=== PATIENT | female | born 1980 | race Caucasian/White ===

== ENCOUNTER 2016-07-30 19:35 | Emergency (ER) | payer MEDICAID, OTHER ==
[~2016-07-30] VITALS: Ht 175.3 cm; Wt 131.0 kg
[2016-07-30 19:41] VITALS: Ht 175.3 cm; Wt 131.0 kg
--- NOTE | 2016-07-30 19:59 | ERD ---
ER Documentation Chief Complaint Date/Time DATE: 07/30/16 TIME: 19:58 Chief Complaint general abd pain x 2 day. +nausea -v/d HPI Patient is a 36-year-old female who presents with gradual onset, constant, moderate left upper quadrant and bilateral lower quadrant abdominal pain for 6 days. She states that her period ended 2 days ago. She had the symptoms during her period, and she thought that her menstrual cramps, but they persist after her period stopped. The patient reports having the same left upper quadrant pain for years after having her tubal ligation. She states that it is worse now than usual. She denies fever, vomiting, diarrhea, constipation, back pain, dysuria, hematuria. She denies vaginal discharge. She reports nausea. ROS All systems reviewed and are negative except as per history of present illness. Medications Home Meds Active Scripts Dicyclomine Hcl* (Bentyl*) 10 Mg Capsule, 10 MG PO QID Y for PAIN, #20 CAP Prov:JOAQUINA LIZARRAGA MD 07/30/16 Famotidine* (Pepcid*) 20 Mg Tablet, 20 MG PO DAILY, #30 TAB Prov:JOAQUINA LIZARRAGA MD 07/30/16 PMhx/Soc Past medical history: None Past surgical history: Tubal ligation Social history: Denies tobacco or alcohol FmHx Family History: No coronary disease, No diabetes Physical Exam Vitals Vital Signs Date Time Temp Pulse Resp B/P Pulse Ox O2 Delivery O2 Flow Rate FiO2 07/30/16 21:44 99.1 78 20 119/80 100 Room Air 07/30/16 19:41 98.2 99 18 134/85 99 Physical Exam Const: Alert, no acute distress Head: Atraumatic Eyes: Normal Conjunctiva, no pallor, no icterus ENT: Normal External Ears, Nose and Mouth. Mucous membranes moist Neck: Full range of motion..~ No meningismus. Resp: Clear to auscultation bilaterally Cardio: Regular rate and rhythm, no murmurs Abd: Soft, non tender, non distended. No guarding, no rebound Skin: No petechiae or rashes Back: No midline or flank tenderness Ext: No cyanosis, or edema Neur: Awake and alert Psych: Normal Mood and Affect Results 24 hrs Laboratory Tests Test 07/30/16 19:19 Urine Color LT. YELLOW Urine Clarity CLEAR Urine pH 6.0 Urine Specific Lim[place] <=1.005 Urine Ketones NEGATIVE Urine Nitrite NEGATIVE Urine Bilirubin NEGATIVE Urine Urobilinogen 0.2 E.U./dL Urine Leukocyte Esterase 1+ Urine Microscopic RBC 2-5/HPF Urine Microscopic WBC 10-25/HPF Urine Epithelial Cells FEW Urine Bacteria FEW Urine Hemoglobin 1+ Urine Glucose NEGATIVE% Urine Total Protein NEGATIVE Current Medications Medications (Trade) Dose Ordered Sig/Gen Route PRN Reason Start Time Stop Time Status Last Admin Dose Admin Dicyclomine HCl (Bentyl) 10 mg ONCE ONCE PO 07/30/16 20:00 07/30/16 20:01 DC 07/30/16 20:05 Famotidine (Pepcid) 20 mg ONCE ONCE PO 07/30/16 20:00 07/30/16 20:01 DC 07/30/16 20:05 Procedures/MDM MDM: Patient is a 36-year-old female who presents with 6 days of abdominal pain. The pain is primarily in the left upper quadrant as well as bilateral lower quadrants. She has a benign exam, no fever, no history of vomiting. The patient denies dysuria or vaginal discharge. Urinalysis shows some white blood cells, but few bacteria. The patient was treated in the ER with Pepcid and Bentyl, and states that her symptoms have completely resolved. Given that the patient is afebrile and has no dysuria, I will defer treatment of UTI based upon results of urine culture. Advised patient to return to ER for fever, vomiting, recurrence of pain. I will prescribe her Pepcid and Bentyl in case of recurrence of symptoms. Departure Diagnosis: Primary Impression: Abdominal pain Abdominal location: left upper quadrant Qualified Code: R10.12 - Left upper quadrant pain Condition: JOAQUINA Norton MD Jul 30, 2016 19:59
[2016-07-30] MEDS ORDERED: FAMOTIDINE 20 MG TAB PO ONE (20:00)
[2016-07-30] MEDS ORDERED: DICYCLOMINE 10 MG CAP PO ONE (20:00)
[2016-07-30] MEDS ORDERED: DICY10CA60 PO (21:32)
[2016-07-30] MEDS ORDERED: FAMO-18 PO (21:32)
[2016-07-30 21:35] LABS: ADD UMIC YES; URINE BILIRUBIN (Dip) NEGATIVE (NEGATIVE); URINE BLOOD (Dip) 1+ (NEGATIVE); URINE COLOR LT. YELLOW (YELLOW); URINE GLUCOSE (Dip) NEGATIVE (NEGATIVE); URINE KETONES (Dip) NEGATIVE (NEGATIVE); URINE LEUKOCYTE ESTERASE (Dip) 1+ (NEGATIVE); URINE NITRITE (Dip) NEGATIVE (NEGATIVE); URINE TOTAL PROTEIN (Dip) NEGATIVE (NEGATIVE); URINE UROBILINOGEN (Dip) 0.2 E.U./dL (0.1-1.0)
[2016-07-30 21:44] VITALS: BP 119/80; PULSE 78; RESP 20; TEMP 99.1
[2016-07-30 21:49] LABS: BACTERIA,URINE FEW
== END 2016-07-30 21:45 | disposition home or self-care (01) ==
LOC: E/R 19:35
DX: R10.12 Left upper quadrant pain (principal)
CPT/HCPCS: 81001; 87086; Z7502; Z7610; 99283

== ENCOUNTER 2016-09-13 13:30 | Emergency (ER) | payer MEDICAID ==
[~2016-09-13] VITALS: Ht 180.3 cm; Wt 130.0 kg
[~2016-09-13 13:30] MED LIST: DICY10CA60 PO; FAMO-96 PO
[2016-09-13 13:33] VITALS: Ht 180.3 cm; Wt 130.0 kg
[2016-09-13] MEDS ORDERED: ONDANSETRON (ODT) 4 MG TAB ODT STA (14:46)
[2016-09-13] MEDS ORDERED: ACETAMINOPHEN 325 MG TAB PO ONE (15:00)
[2016-09-13 15:58] LABS: BASOPHILS % 0.2 % (0.0-2.0); EOSINOPHILS # 0.2 10^3/ul (0.0-0.5); EOSINOPHILS % 1.9 % (0.0-7.0); HEMATOCRIT 41.1 % (37.0-47.0); HEMOGLOBIN 13.9 g/dl (12.0-16.0); LYMPHOCYTES # 1.5 10^3/ul (0.8-2.9); LYMPHOCYTES % 17.5 % (15.0-51.0); MEAN CORPUSCULAR HEMOGLOBIN 30.1 pg (29.0-33.0); MEAN CORPUSCULAR HGB CONC 33.8 g/dl (32.0-37.0); MONOCYTE # 0.6 10^3/ul (0.3-0.9); MONOCYTES % 6.7 % (0.0-11.0); NEUTROPHIL # 6.3 10^3/ul (1.6-7.5); NEUTROPHILS % 73.3 % (39.0-77.0); PLATELET COUNT 274 10^3/UL (140-415); RED BLOOD COUNT 4.62 10^6/ul (4.20-5.40); RED CELL DISTRIBUTION WIDTH 12.5 % (11.5-14.5); WHITE BLOOD COUNT 8.5 10^3/ul (4.8-10.8)
[2016-09-13 16:14] LABS: ALBUMIN 4.9 g/dl (3.3-4.9); ALBUMIN/GLOBULIN RATIO 1.58; BILIRUBIN,INDIRECT 0.3 mg/dl (0-1.1); BILIRUBIN,TOTAL 0.3 mg/dl (0.2-1.3); CALCIUM 10.2 mg/dl (8.4-10.2); CREATININE 0.81 mg/dl (0.44-1.00); POTASSIUM 4.6 mmol/L (3.5-5.1)
[2016-09-13] MEDS ORDERED: ONDA4TAB14 PO (16:52)
[2016-09-13] MEDS ORDERED: ACET325T33 PO (16:52)
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
[2016-09-13 17:04] VITALS: BP 165/91; PULSE 79; RESP 16; TEMP 98.4
== END 2016-09-13 17:05 | disposition home or self-care (01) ==
LOC: FTE 13:30
DX: R51 Headache (principal); R11.0 Nausea
CPT/HCPCS: 36415; 80053; 85025; Z7502; Z7610; 99283

== ENCOUNTER 2018-01-27 22:41 | Emergency (ER) | END 2018-01-28 01:13 | disposition home or self-care (01) ==

== ENCOUNTER 2018-02-15 20:31 | Emergency (ER) | payer MEDICAID ==
[~2018-02-15] VITALS: Wt 135.0 kg
[~2018-02-15 20:31] MED LIST changes: +ACET325T33 PO; +DICY10CA40 PO; -DICY10CA60 PO; +FIORICET PO; +ONDA4TAB14 PO
[2018-02-15 20:34] VITALS: BP 148/94; PULSE 91; RESP 19
--- NOTE | 2018-02-15 21:01 | ERD ---
ER Documentation Chief Complaint Chief Complaint bib self, cc: headache x 3 days HPI This is a 37-year-old female who presents emergency department with complaints of congestion, right lower eyelid inflammation. Also complains of cough and fever. Also stated she felt like she had a fever at home but never took her temperature. Denies use of contact lenses, use of glasses, eye injuries. Denies foreign body sensation to eyes. LMP: 02/15/2018. . Denies headache, head injury, loss of consciousness, dizziness, neck pain, neck stiffness, throat pain, difficulty swallowing, difficulty breathing lying flat, shoulder pain, chest pain, back pain, abdominal pain, nausea, vomiting, const ipation, diarrhea, urinary symptoms, or possibility being , loss of bowel and bladder control, trauma, injury, falls, difficulty walking due to pain, numbness or tingling sensation, calf pain, recent travel, recent major surgery in the last 3 weeks, calf pain, recent long travel, recent exposure to any illness, recent antibiotic use in the last 3 months, chills, seizures. Past medical history: Surgical history: Tubal ligation. Social: Denies smoking, use of alcoholic beverages, use of illegal drugs. ROS All systems reviewed and are negative except as per history of present illness. Medications Home Meds Active Scripts Acetamin/Butalbital/Caffeine* (Fioricet*) [id number] Tab, 1 TAB PO Q6H PRN for PAIN, #30 TAB Prov:EITAN COTO 02/15/18 Guaifenesin-Dextromethorphan* (Robafen* DM) 100MG/10MG/5ML Liquid, 7.5 ML PO Q6H PRN for COUGH, #120 ML Prov:SHBANAMILAEITAN MACEDO 02/15/18 Loratadine (Loratadine) 10 Mg Capsule, 10 MG PO DAILY, #30 CAP Prov:SHABNAMILAEITAN MACEDO 02/15/18 Erythromycin Base (Erythromycin) 1 Gm Oint...g., 1 APPLIC BOTH EYES QID for 7 Days Prov:PASILAEITAN MACEDO 02/15/18 Acetaminophen* (Tylophen*) 500 Mg Capsule, 1 CAP PO Q6H PRN for PAIN AND OR ELEVATED TEMP, #20 CAP Prov:PASEITAN GUERRA 02/15/18 Ibuprofen* (Motrin*) 800 Mg Tab, 800 MG PO Q6H PRN for PAIN AND OR ELEVATED TEMP, #30 TAB Prov:EITAN COTO 02/15/18 Amoxicillin/Potassium Clav (Amox-Clav 875-125 mg Tablet) 875-125 mg Tab, 1 TAB PO BID for 10 Days, #20 TAB Prov:EITAN COTO 02/15/18 Acetamin/Butalbital/Caffeine* (Fioricet*) [id number] Tab, 1 TAB PO Q6H PRN for PAIN, #30 TAB Prov:LUCERO ALEXANDER PA-C 01/28/18 Acetaminophen* (Tylenol*) 325 Mg Tablet, 2 TAB PO Q8 PRN for PAIN AND OR ELEVATED TEMP, #20 TAB Prov:VANNA STANTON PA-C 09/13/16 Ondansetron (Ondansetron Odt) 4 Mg Tab.rapdis, 4 MG PO Q6H PRN for NAUSEA AND/OR VOMITING, #10 TAB Prov:VANNA STANTON PA-C 09/13/16 Dicyclomine HCl (Dicyclomine HCl) 10 Mg Capsule, 10 MG PO QID PRN for PAIN, #20 CAP Prov:JOAQUINA LIZARRAGA MD 07/30/16 Famotidine* (Pepcid*) 20 Mg Tablet, 20 MG PO DAILY, #30 TAB Prov:JOAQUINA LIZARRAGA MD 07/30/16 Allergies Allergies: Coded Allergies: No Known Allergy (Unverified , 02/15/18) PMhx/Soc Hx Alcohol Use: No Hx Substance Use: No Hx Tobacco Use: No Physical Exam Vitals Vital Signs Date Temp Pulse Resp B/P (MAP) Pulse Ox O2 O2 Flow FiO2 Time Delivery Rate 02/15/18 98.2 91 19 148/94 100 20:34 (112) Physical Exam Const: No acute distress Head: Atraumatic Eyes: Right eye: Has conjunctival injection. Right lower eyelid has inflammation. Good eye movement. No visual field loss. Left eye: Mild conjunctival injection. No eyelid inflammation. Good eye movement. No visual field loss. ENT: Normal External Ears, Nose and Mouth. Bilateral ears: TMs are not erythematous. No bleeding. No discharge. No mastoid tenderness. No hearing loss. Nose: There is frontal and maxillary sinus tenderness to palpation. Throat: Uvula is in midline and nondisplaced. Tonsils are +1 bilaterally with no redness and no exudates. Tolerating secretions. Patent airway. Speech full and clear sentences. Neck: Full range of motion. No meningismus. No nuchal rigidity. No signs of meningeal irritation. Resp: Clear to auscultation bilaterally. No accessory muscle use in breathing. Cardio: Regular rate and rhythm, no murmurs Abd: Soft, non tender, non distended. Normal bowel sounds Skin: No petechiae or rashes Back: No midline or flank tenderness Ext: No cyanosis, or edema Neur: Awake and alert. No neurological deficits. Psych: Normal Mood and Affect Results 24 hrs Current Medications Medications Dose Sig/Gen Start Time Status Last (Trade) Ordered Route PRN Stop Time Admin Dose Reason Admin 1 tab ONCE ONCE 02/15/18 DC 02/15/18 Acetaminophen PO 21:30 21: / 02/15/18 Hydrocodone 21:30 Bitart (Scotia (10)) Procedures/MDM Diagnostic tests: Clinical exam. Treatment: Scotia p.o. Re-evaluation: Denies pain. Differential diagnosis I have low suspicion for acute closure angle glaucoma, globe rupture, retained foreign body to eyes, periorbital cellulitis, orbital cellulitis, mastoiditis, peritonsillar abscess, meningitis, sepsis. Final diagnosis: Blepharitis. Conjunctivitis. Sinusitis. Prescription: Erythromycin ophthalmic. Augmentin. Motrin. Claritin. Nasonex. Also instructed to do warm compresses to her right lower eyelid. Follow-up with PCP in the next 24-48 hours. Come back here in the emergency department for any new symptoms or any worsening symptoms. All questions and concerns were answered. Patient and family members verbalized understanding and agreed with plan of care. Hemodynamically stable on discharge. Departure Diagnosis: Primary Impression: Headache Additional Impressions: Acute bacterial sinusitis Blepharitis Conjunctivitis Allergic rhinitis Condition: Stable Additional Instructions: Follow-up with PCP in the next 24-48 hours. Come back here in the emergency department for any new symptoms or any worsening symptoms. EITAN COTO Feb 15, 2018 21:01
[2018-02-15] MEDS ORDERED: ACET500C5 PO (21:13)
[2018-02-15] MEDS ORDERED: AMOX1TAB10 PO (21:13)
[2018-02-15] MEDS ORDERED: IBUP800T48 PO (21:13)
[2018-02-15] MEDS ORDERED: ERYT1OIN6 BOTH EYES (21:14)
[2018-02-15] MEDS ORDERED: LORA10CA9 PO (21:14)
[2018-02-15] MEDS ORDERED: GUAI-227 PO (21:15)
[2018-02-15] MEDS ORDERED: FIORICET PO (21:16)
[2018-02-15] MEDS ORDERED: HYDROCODONE/APAP (10/325) TAB PO ONE (21:30)
== END 2018-02-15 21:29 | disposition home or self-care (01) ==
LOC: FTE 20:31
DX: J01.90 Acute sinusitis, unspecified (principal); H01.009 Unspecified blepharitis unspecified eye, unspecified eyelid; H10.9 Unspecified conjunctivitis; J30.9 Allergic rhinitis, unspecified
CPT/HCPCS: Z7502; Z7610; 99283

== ENCOUNTER 2018-05-28 20:51 | Emergency (ER) | payer MEDICAID ==
[~2018-05-28] VITALS: Ht 170.2 cm; Wt 135.6 kg
[~2018-05-28 20:51] MED LIST changes: +ACET500C5 PO; +AMOX1TAB10 PO; +ERYT1OIN6 BOTH EYES; +GUAI-227 PO; +IBUP800T48 PO; +LORA10CA9 PO
[2018-05-28 20:56] VITALS: Ht 170.2 cm; Wt 135.6 kg
[2018-05-28] MEDS ORDERED: KETOROLAC 60 MG INJ IM STA (23:26)
[2018-05-28] MEDS ORDERED: HYDROCODONE/APAP (5/325) TAB PO ONE (23:30)
--- NOTE | 2018-05-28 23:43 | ERD ---
ER Documentation Chief Complaint Chief Complaint LEFT FOOT PAIN AND LEFT SIDE PAIN, S/P FALL [id number] AGO HPI 37-year-old female presents with complaint of left foot pain worse in the morni ng as well as left lower back pain. States that she fell 2 months ago possibly injuring herself. Also admits to some dysuria and urgency. Denies any numbness, tingling, weakness, vomiting, abdominal pain, diarrhea, fevers. Not taking any treatments. Denies allergies. Denies medical problems. ROS All systems reviewed and are negative except as per history of present illness. Medications Home Meds Active Scripts Hydrocodone/Acetaminophen (Bishop 5-325 Tablet) 1 Each Tablet, 1 TAB PO Q6H PRN for PAIN, #7 TAB Prov:LISA GALLAGHER 05/29/18 Ibuprofen* (Motrin*) 600 Mg Tab, 600 MG PO Q6 for pain, #30 TAB Prov:LISA GALLAGHER 05/29/18 Acetamin/Butalbital/Caffeine* (Fioricet*) [id number] Tab, 1 TAB PO Q6H PRN for PAIN, #30 TAB Prov:EITAN COTO 02/15/18 Guaifenesin-Dextromethorphan* (Robafen* DM) 100MG/10MG/5ML Liquid, 7.5 ML PO Q6H PRN for COUGH, #120 ML Prov:EITAN COTO 02/15/18 Loratadine (Loratadine) 10 Mg Capsule, 10 MG PO DAILY, #30 CAP Prov:EITAN COTO 02/15/18 Erythromycin Base (Erythromycin) 1 Gm Oint...g., 1 APPLIC BOTH EYES QID for 7 Days Prov:EITAN COTO 02/15/18 Acetaminophen* (Tylophen*) 500 Mg Capsule, 1 CAP PO Q6H PRN for PAIN AND OR ELEVATED TEMP, #20 CAP Prov:EITAN COTO 02/15/18 Ibuprofen* (Motrin*) 800 Mg Tab, 800 MG PO Q6H PRN for PAIN AND OR ELEVATED TEMP, #30 TAB Prov:EITAN COTO 02/15/18 Amoxicillin/Potassium Clav (Amox-Clav 875-125 mg Tablet) 875-125 mg Tab, 1 TAB PO BID for 10 Days, #20 TAB Prov:EITAN COTO 02/15/18 Acetamin/Butalbital/Caffeine* (Fioricet*) [id number] Tab, 1 TAB PO Q6H PRN for PAIN, #30 TAB Prov:LUCERO ALEXANDER PA-C 01/28/18 Acetaminophen* (Tylenol*) 325 Mg Tablet, 2 TAB PO Q8 PRN for PAIN AND OR ELEVATED TEMP, #20 TAB Prov:VANNA STANTON PA-C 09/13/16 Ondansetron (Ondansetron Odt) 4 Mg Tab.rapdis, 4 MG PO Q6H PRN for NAUSEA AND/OR VOMITING, #10 TAB Prov:VANNA STANTON PA-C 09/13/16 Dicyclomine HCl (Dicyclomine HCl) 10 Mg Capsule, 10 MG PO QID PRN for PAIN, #20 CAP Prov:JOAQUINA LIZARRAGA MD 07/30/16 Famotidine* (Pepcid*) 20 Mg Tablet, 20 MG PO DAILY, #30 TAB Prov:JOAQUINA LIZARRAGA MD 07/30/16 Allergies Allergies: Coded Allergies: No Known Allergy (Unverified , 02/15/18) PMhx/Soc Medical and Surgical Hx: pt denies Medical Hx, pt denies Surgical Hx Hx Alcohol Use: No Hx Substance Use: No Hx Tobacco Use: No Smoking Status: Never smoker FmHx Family History: No diabetes, No coronary disease, No other Physical Exam Vitals Vital Signs Date Temp Pulse Resp B/P (MAP) Pulse Ox O2 O2 Flow FiO2 Time Delivery Rate 05/28/18 98.3 95 19 142/91 99 20:56 (108) Physical Exam Const: No acute distress Head: Atraumatic Eyes: Normal Conjunctiva ENT: Normal External Ears, Nose and Mouth. Neck: Full range of motion. No meningismus. Resp: Clear to auscultation bilaterally Cardio: Regular rate and rhythm, no murmurs Abd: Soft, non tender, non distended. Normal bowel sounds Skin: No petechiae or rashes Back: No midline or flank tenderness Ext: No cyanosis, or edema. 5/5 strength in lower extremities bilaterally. Distal pulses and sensation is intact. Tenderness to palpation posterior plantar aspect of left foot. There is no bony deformity, erythema, ecchymosis, or edema on the left foot. Full range of motion in all joints of lower extremities bilaterally. Neur: Awake and alert Psych: Normal Mood and Affect Results 24 hrs Laboratory Tests Test 05/28/18 23:44 05/28/18 23:56 POC Beta HCG, Qualitative NEGATIVE Bedside Urine pH (LAB) 6.0 Bedside Urine Protein (LAB) Negative Bedside Urine Glucose (UA) Negative Bedside Urine Ketones (LAB) Negative Bedside Urine Blood Trace-lysed Bedside Urine Nitrite (LAB) Negative Bedside Urine Leukocyte Esterase (L Negative Current Medications Medications Dose Sig/Gen Start Time Status Last (Trade) Ordered Route PRN Stop Time Admin Dose Reason Admin Ketorolac 60 mg ONCE STAT 05/28/18 DC 05/28/18 Tromethamine IM 23:26 05/28/18 23:57 (Toradol) 23:28 1 tab ONCE ONCE 05/28/18 DC 05/28/18 Acetaminophen PO 23:30 05/28/18 23:42 / 23:31 Hydrocodone Bitart (Bishop (5/325)) Procedures/MDM Patient's presentation is consistent with plantar fasciitis. Patient was given pain medication in the ER but told that this seems to be handled by podiatry as an outpatient basis. Patient is ambulatory and there is no suspicion of fracture at this time or need for imaging. I have low suspicion for neurovascular compromise, compartment syndrome, fracture, osteomyelitis, septic joint, or other emergent condition. Patient discharged with short course of Bishop for breakthrough pain as well as ibuprofen. Patient discharged with strict ER precautions. Patient advised to follow up with PMD. All questions answered at discharge. The patient has been prescribed Bishop during this encounter. The patient has been warned about the use of narcotics. The patient should not drive or operate heavy machinery while taking this medication. The patient was also warned about the addictive properties of narcotic medications. Narcan prescription was NOT provided given the following criteria 1. No more than 5 tablets of Bishop 10 mg or 10 tablets of Bishop 5 mg were prescribed. 2. Concomitant opiate and benzodiazepine prescriptions were not provided. 3. There is no obvious evidence of prior history of opiate abuse or overdose. Narcan prescription WAS provided given one of the following criteria were met. 1. More than 5 tablets of Bishop 10 mg or 10 tablets of Bishop 5 mg were prescribed. 2. Concomitant opiate and benzodiazepine prescriptions were provided. 3. There is evidence of prior history of opiate abuse or overdose. Departure Diagnosis: Primary Impression: Plantar fasciitis of left foot Condition: Stable LISA GALLAGHER May 28, 2018 23:43
[2018-05-29] MEDS ORDERED: IBUP-1542 PO (00:02)
[2018-05-29] MEDS ORDERED: HYDR-4011 PO (00:02)
[2018-05-29 00:27] VITALS: BP 129/75; PULSE 76; RESP 20
== END 2018-05-29 00:28 | disposition home or self-care (01) ==
LOC: FTE 20:51
DX: M72.2 Plantar fascial fibromatosis (principal)
CPT/HCPCS: 81003; 81025; 96372; J1885; Z7502; Z7610

== ENCOUNTER 2018-10-08 22:40 | Emergency (ER) | payer MEDICAID ==
[~2018-10-08] VITALS: Ht 175.3 cm; Wt 129.8 kg
[~2018-10-08 22:40] MED LIST changes: +CYCL10TA7 PO; +HYDR-4011 PO; +IBUP-1542 PO; +NAPR-688 PO; +NAPR-985 PO
[2018-10-08 22:42] VITALS: Ht 175.3 cm; Wt 129.8 kg
[2018-10-09] MEDS ORDERED: KETOROLAC 30 MG INJ IM STA (00:15)
[2018-10-09] MEDS ORDERED: DEXAMETHASONE 10 MG/ML 1 ML INJ IM ONE (00:30)
[2018-10-09 01:45] VITALS: BP 121/76; PULSE 76; RESP 18
== END 2018-10-09 01:45 | disposition home or self-care (01) ==
LOC: FTE 22:40
DX: S90.32XA Contusion of left foot, initial encounter (principal); M54.42 Lumbago with sciatica, left side; X50.1XXA Overexertion from prolonged static or awkward postures, initial encounter; Y92.002 Bathroom of unspecified non-institutional (private) residence as the place of occurrence of the external cause
CPT/HCPCS: 73630; 81025; 96372; J1100; J1885; Z7502

== ENCOUNTER 2018-10-25 08:32 | Inpatient (IN) | payer MEDICAID ==
[~2018-10-25] VITALS: Ht 177.8 cm; Wt 133.0 kg
[~2018-10-25 08:32] MED LIST changes: +BACL10TA PO; +FLUT9.9S NASAL; -GUAI-227 PO; +GUAI-752 PO; +NITR-58 PO
[2018-10-25] MEDS ORDERED: SOD CHLORIDE 0.9% 1,000 ML IV STA (09:21)
[2018-10-25] MEDS ORDERED: KETOROLAC 30 MG INJ IV STA (09:21)
[2018-10-25] MEDS ORDERED: ONDANSETRON 4 MG INJ IV STA ×2 (09:21→11:12)
[2018-10-25] MEDS ORDERED: morphine 4 MG/ML VIAL IV STA ×2 (11:12→13:15)
[2018-10-25] MEDS ORDERED: ONDANSETRON 4 MG INJ IV PRN ×2 (12:30→14:00)
[2018-10-25] MEDS ORDERED: ACETAMINOPHEN 325 MG TAB PO PRN (12:30)
[2018-10-25 13:26] VITALS: BP 129/66; PULSE 75; RESP 18
[2018-10-25] MEDS ORDERED: NACL 0.9% 3 ML SYG IV SCH (14:00)
[2018-10-25] MEDS ORDERED: morphine 4 MG/ML VIAL IV PRN (14:00)
[2018-10-25] MEDS: SOD CHLORIDE 0.9% 1,000 ML IV SCH ×2 (14:35→21:59)
[2018-10-25 15:45] VITALS: Ht 177.8 cm; Wt 133.0 kg
[2018-10-25 20:03] VITALS: BP 144/87; PULSE 66; RESP 18
[2018-10-26 02:00] VITALS: BP 144/84; PULSE 74; RESP 18
[2018-10-26] MEDS: SOD CHLORIDE 0.9% 1,000 ML IV SCH ×4 (06:00→22:39)
[2018-10-26] MEDS: HYDROCODONE/APAP (5/325) TAB PO PRN ×2 (07:09→15:08)
[2018-10-26 08:35] VITALS: BP 120/73; PULSE 83; RESP 20
[2018-10-26] MEDS ORDERED: ENOXAPARIN 40 MG/0.4 ML SYG SC SCH (09:00)
[2018-10-26 11:41] VITALS: BP 116/82; PULSE 71; RESP 14
[2018-10-26] MEDS ORDERED: BISACODYL 10 MG SUPP PR PRN (12:30)
[2018-10-26] MEDS ORDERED: DIPHENHYDRAMINE 50 MG INJ IV PRN (12:30)
[2018-10-26 15:02] VITALS: BP 124/70; PULSE 85; RESP 18
[2018-10-26] MEDS: HYOSCYAMINE 0.125 MG SUBL TAB PO SCH ×2 (15:30→22:39)
[2018-10-26] MEDS: PANTOPRAZOLE 40 MG INJ IV SCH (17:54)
[2018-10-26 20:00] VITALS: BP 145/92; PULSE 76; RESP 18
[2018-10-26] MEDS: POLYETHYLENE GLYCOL 17 GM PACKET PO SCH (20:11)
[2018-10-27 02:00] VITALS: BP 133/76; PULSE 75; RESP 18
[2018-10-27] MEDS: PANTOPRAZOLE 40 MG INJ IV SCH ×2 (06:05→18:07)
[2018-10-27] MEDS: SOD CHLORIDE 0.9% 1,000 ML IV SCH ×2 (06:16→14:55)
[2018-10-27] MEDS: HYOSCYAMINE 0.125 MG SUBL TAB PO SCH ×3 (06:16→21:26)
[2018-10-27 08:12] VITALS: BP 117/75; PULSE 72; RESP 16
[2018-10-27] MEDS: POLYETHYLENE GLYCOL 17 GM PACKET PO SCH ×2 (08:44→21:26)
[2018-10-27 13:19] VITALS: BP 111/72; PULSE 77; RESP 18
[2018-10-27 19:57] VITALS: BP 135/86; PULSE 70; RESP 18
[2018-10-28 02:00] VITALS: BP 116/66; PULSE 66; RESP 18
[2018-10-28] MEDS: SOD CHLORIDE 0.9% 1,000 ML IV SCH ×2 (04:08→06:23)
[2018-10-28] MEDS: PANTOPRAZOLE 40 MG INJ IV SCH (06:23)
[2018-10-28] MEDS: HYOSCYAMINE 0.125 MG SUBL TAB PO SCH (06:23)
[2018-10-28 08:14] VITALS: BP 131/78; PULSE 72; RESP 20
[2018-10-28] MEDS: POLYETHYLENE GLYCOL 17 GM PACKET PO SCH (08:23)
== END 2018-10-28 12:35 | disposition home or self-care (01) | DRG 439 ==
LOC: FTE 08:32 → 2NE 12:12
PROVIDERS: ADMIT Family Medicine; ATTEND Family Medicine
DX: K85.10 Biliary acute pancreatitis without necrosis or infection (principal); Z68.41 Body mass index [BMI] 40.0-44.9, adult; E66.01 Morbid (severe) obesity due to excess calories; Z71.3 Dietary counseling and surveillance; I10 Essential (primary) hypertension; R74.0 Nonspecific elevation of levels of transaminase and lactic acid dehydrogenase [LDH]
CPT/HCPCS: 36415; 76705; 80053; 80061; 81001; 81025; 82150; 83036; 83690; 83735; 84100; 85025; 86704; 86708; 86709; 86803; 87340; 93970; 96374; 96375; 96376; C9113; J1650; J1885; J2270; J2405; J7030

== ENCOUNTER 2018-10-29 03:31 | Inpatient (IN) | payer MEDICAID ==
[2018-10-29] VITALS (16 sets, daily range): BP systolic 110–135; BP diastolic 66–83; PULSE 66–78; RESP 14–20; Ht 175.3 cm; Wt 130.1 kg
[~2018-10-29] VITALS: Ht 175.3 cm; Wt 130.1 kg
[2018-10-29] MEDS ORDERED: ACETAMINOPHEN 325 MG TAB PO PRN (04:30)
[2018-10-29] MEDS ORDERED: ONDANSETRON 4 MG INJ IV PRN ×4 (04:30→11:00)
[2018-10-29] MEDS ORDERED: DEXTROSE 5%-0.45% NACL 1,000 ML IV SCH (06:41)
[2018-10-29] MEDS ORDERED: ALBUTEROL/IPRATROPIUM (NEB) 3 ML AMP HHN PRN (07:00)
[2018-10-29] MEDS ORDERED: morphine 2 MG INJ IV PRN ×2 (07:00→11:00)
[2018-10-29] MEDS ORDERED: NACL 0.9% 3 ML SYG IV SCH (07:00)
[2018-10-29] MEDS ORDERED: FAMOTIDINE 20 MG INJ IV SCH (09:00)
[2018-10-29] MEDS ORDERED: PROCHLORPERAZINE 10 MG INJ IV PRN (09:30)
[2018-10-29] MEDS ORDERED: FENTAnyl 50 MCG/ML VIAL IV PRN (09:30)
[2018-10-29] MEDS ORDERED: HYDROmorphONE 1 MG/5 ML IV SYRINGE IV PRN ×2 (09:30)
[2018-10-29] MEDS ORDERED: DIPHENHYDRAMINE 50 MG INJ IV PRN (09:30)
[2018-10-29] MEDS ORDERED: EPHEDrine 25 MG/5 ML SYG IV PRN (09:30)
[2018-10-29] MEDS ORDERED: LABETALOL HCL 20MG INJ IV PRN (09:30)
[2018-10-29] MEDS ORDERED: MEPERIDINE 25 MG INJ IV PRN (09:30)
[2018-10-29] MEDS ORDERED: hydrALAzine 20 MG INJ IV PRN (09:30)
[2018-10-29] MEDS ORDERED: LIDOCAINE 2% (SDV) 5 ML INJ ONE (09:47)
[2018-10-29] MEDS ORDERED: ROCURONIUM 50 MG INJ ONE (09:47)
[2018-10-29] MEDS ORDERED: PROPOFOL 200 MG INJ ONE (09:47)
[2018-10-29] MEDS ORDERED: SUCCINYLCHOLINE CHLORIDE 100 MG/5 ML SYG IV ONE (09:47)
[2018-10-29] MEDS ORDERED: PROPOFOL 20 ML ONE (09:47)
[2018-10-29] MEDS ORDERED: MIDAZOLAM 1 MG/ML 2 ML INJ ONE (09:47)
[2018-10-29] MEDS ORDERED: FENTAnyl 50 MCG/ML VIAL ONE (09:48)
[2018-10-29] MEDS ORDERED: ROPIVACAINE 0.5 % 30 ML VIAL ONE (09:48)
[2018-10-29] MEDS ORDERED: CEFAZOLIN 1 GM INJ ONE (10:34)
[2018-10-29] MEDS ORDERED: ONDANSETRON 4 MG INJ ONE (10:35)
[2018-10-29] MEDS ORDERED: DEXAMETHASONE 4 MG/ML 5 ML INJ ONE (10:35)
[2018-10-29] MEDS ORDERED: SUGAMMADEX SODIUM 200 MG/2 ML VIAL IV ONE ×2 (10:41→10:43)
[2018-10-29] MEDS ORDERED: BUPIVACAINE 0.5%/EPI (SDV) 30 ML INJ ONE (10:44)
[2018-10-29] MEDS ORDERED: KETOROLAC 30 MG INJ ONE (10:50)
[2018-10-29] MEDS ORDERED: OXYCODONE/ACETAMINOPHEN (5/325) TAB PO PRN ×2 (11:00)
[2018-10-29] MEDS: HYDROmorphONE 1 MG/5 ML IV SYRINGE IV PRN ×4 (11:16→12:05)
== END 2018-10-29 13:24 | disposition home or self-care (01) | DRG 418 ==
LOC: E/R 03:31 → REC 04:32
PROVIDERS: ADMIT Internal Medicine; ATTEND Internal Medicine
PROC: 0FT44ZZ Resection of Gallbladder, Percutaneous Endoscopic Approach (ICD-10-PCS; principal; 2018-10-29 10:00)
DX: K85.10 Biliary acute pancreatitis without necrosis or infection (principal); K80.10 Calculus of gallbladder with chronic cholecystitis without obstruction; Z68.41 Body mass index [BMI] 40.0-44.9, adult; E66.01 Morbid (severe) obesity due to excess calories; I10 Essential (primary) hypertension
CPT/HCPCS: 80053; 81025; 83690; 85025; 85610; 86850; 86900; 86901; 88304; J0690; J1100; J1170; J1885; J2175; J2250; J2405; J2795; J3010; J7042